=== PATIENT | male | born 2000 | race Caucasian/White ===

== ENCOUNTER 2024-09-26 09:48 | Emergency (ER) | payer SELFPAY ==
[~2024-09-26] VITALS: Ht 170.2 cm; Wt 75.0 kg
[2024-09-26 09:52] VITALS: O2SAT 100
[2024-09-26 10:05] VITALS: BP 125/67; PULSE 58; RESP 19; TEMP 37.1; O2SAT 99
== END 2024-09-26 12:38 | disposition left against medical advice (07) ==
LOC: ER 09:48
DX: S61.019A Laceration without foreign body of unspecified thumb without damage to nail, initial encounter (principal); Z53.21 Procedure and treatment not carried out due to patient leaving prior to being seen by health care provider; X58.XXXA Exposure to other specified factors, initial encounter; Y93.89 Activity, other specified; Y92.89 Other specified places as the place of occurrence of the external cause; Y99.8 Other external cause status